=== PATIENT | female | born 1985 | race Caucasian/White ===

== ENCOUNTER 2022-12-15 21:36 | Inpatient (IN) | payer OTHER, SELFPAY ==
[2022-12-15 21:49] VITALS: BP 110/89; PULSE 83; RESP 18; TEMP 36.6; O2SAT 95; BMI 22.3
[2022-12-15 22:26] LABS: UPreg QC Valid YES; Urine Pregnancy NEGATIVE (NEGATIVE)
[2022-12-15 22:27] LABS: Appearance Urine Cloudy; Color Urine Yellow; Glucose Urine UA Negative (Negative); Leukocyte Esterase Urine Negative (Negative); Nitrite Urine Negative (Negative); Specific Gravity - Urine <= 1.005 (1.005-1.025); Urine Blood Negative (Negative); Urine Ketones Negative (Negative); Urine Protein Negative (Neg-Trace)
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
[2022-12-15 22:31] LABS: Amphetamine Screen Urine Not Detected (Not Detect); Barbiturates, Urine Not Detected (Not Detect); Benzodiazepines Screen Urine Not Detected (Not Detect); Cannabinoid Screen Urine Not Detected (Not Detect); Cocaine Screen Urine Not Detected (Not Detect); Fentanyl, urine Not Detected (Not Detect); Opiate Screen Urine Not Detected (Not Detect); Phencyclidine Screen Urine Not Detected (Not Detect)
[2022-12-15] MEDS: OLANZapine 10 MG TABLET PO (22:39)
[2022-12-15] MEDS: diphenhydrAMINE HCL 25 MG CAPSULE 50 MG PO (22:39)
[2022-12-15] MEDS: levETIRAcetam 500 MG TABLET PO (22:39)
[2022-12-15] MEDS: LORazepam 1 MG TABLET 2 MG PO (22:39)
[2022-12-15 22:51] LABS: MANUAL DIFF FLAG NO
[2022-12-15 22:52] LABS: Basophils Absolute Auto 0.1 X10*3/uL (0.0-0.2); Basophils Percent Auto 0.8 % (0-2); Eosinophils Absolute Auto 0.1 X10*3/uL (0.0-0.4); Eosinophils Percent Auto 0.8 % (0-4); Hematocrit 32.5 % (37.0-47.0); Hemoglobin 10.5 g/dl (12.0-16.0); Imm Gran Abs Auto 0.02 X10*3/uL (0.00-0.03); Imm Gran Pct Auto 0.3 % (0.0-0.4); Lymphocytes Absolute Auto 3.8 X10*3/uL (1.2-4.9); Mean Corpuscular HGB Conc 32.3 g/dl (31.0-35.0); Mean Corpuscular Hemoglobin 25.8 pg (27.0-33.0); Mean Corpuscular Volume 79.9 fL (80.0-98.0); Mean Platelet Volume 7.9 fL (9.4-12.3); Monocytes Absolute Auto 0.4 X10*3/uL (0.1-1.2); Monocytes Percent Auto 5.3 % (2-11); Neutrophils Absolute Auto 3.4 x10*3/uL (2.0-8.3); Neutrophils Percent Auto 43.8 % (45-73); Platelet Count 229 X10*3/uL (160-400); Red Blood Count 4.07 X10*6/uL (4.20-5.50); Red Cell Distribution Width 18.3 % (11.0-16.0); White Blood Count 7.7 X10*3/uL (4.8-10.8)
[2022-12-15 23:03] LABS: Ethanol 378 mg/dL
[2022-12-15 23:06] LABS: Alanine Aminotransferase 22 U/L (0-31); Albumin Level 3.9 g/dL (3.5-5.0); Alkaline Phosphatase 99 U/L (39-117); Anion Gap 16 (12-20); Aspartate Amino Transferase 42 U/L (5-31); Bilirubin Total 0.7 mg/dL (0.0-1.0); Blood Urea Nitrogen 7 mg/dL (9-16); COVID-19 Test Negative (Negative); Calcium 8.6 mg/dL (8.4-10.2); Carbon Dioxide 24 mmol/L (22-29); Chloride 108 mmol/L (96-108); Estimated Glomerular Filt Rate > 60; Glucose Random 94 mg/dL (60-115); IDNOW Serial# 55D5AD1C; Potassium 3.5 mmol/L (3.3-5.1); Sodium 144 mmol/L (135-145); Total Protein 7.8 g/dL (6.5-8.0)
[2022-12-16 06:05] VITALS: BP 107/70; PULSE 78; RESP 16; TEMP 36.7; O2SAT 97
--- NOTE | 2022-12-16 06:43 | PC.NURSE ---
Patient at the time of arrival was tearful and sad, tried to wrap blanket around her neck, provider notified/ordered ativan 2 mg PO, Benadryl 50 mg PO, olanzapine 10 mg PO and keppra 500 mg administered at 2239 with + effect, slept through the night, patient will be clinically sober at 1045 am, care consult ordered/pending evaluation, VSS, labs completed/resulted, med rec completed/pending provider's approval, will continue to monitor.
--- NOTE | 2022-12-16 07:11 | PC.NURSE ---
patient appears to remain asleep at present respirations are even and unlabored patient appears in no distress
[2022-12-16 09:27] VITALS: BP 114/79; PULSE 85; RESP 15; TEMP 36.9; O2SAT 97
[2022-12-16] MEDS: LORazepam 1 MG TABLET 2 MG PO ×3 (09:30→22:09)
[2022-12-16] MEDS: levETIRAcetam 500 MG TABLET PO (09:56)
[2022-12-16 15:54] VITALS: BP 116/82; PULSE 98; RESP 20; TEMP 37.1; O2SAT 97
[2022-12-17] MEDS: levETIRAcetam 500 MG TABLET PO ×3 (00:12→20:23)
[2022-12-17 05:17] VITALS: BP 114/84; PULSE 77; RESP 16; TEMP 36.1; O2SAT 99
--- NOTE | 2022-12-17 07:18 | PC.NURSE ---
PT CIWA 6- medicated as per APR. PT reports positive effect- ciwa now 0. PT appears to be sleeping. Respiration even and unlabored. Safety precautions in place. Plan for pt to go to [facility] in the morning.
[2022-12-17 08:58] VITALS: BP 128/90; PULSE 86; RESP 18; TEMP 36.4; O2SAT 99
[2022-12-17] MEDS: LORazepam 1 MG TABLET 2 MG PO ×2 (09:04→14:10)
[2022-12-17 14:09] VITALS: BP 129/92; PULSE 115; RESP 19; TEMP 36.7; O2SAT 99
--- NOTE | 2022-12-17 14:13 | PC.NURSE ---
Lorazepam 2mg PO given for CIWA of 11.
[2022-12-17 18:00] VITALS: BP 121/87; PULSE 104; RESP 18; TEMP 37.1; O2SAT 98
[2022-12-17 18:01] VITALS: BMI 21.1
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
[2022-12-17 19:49] VITALS: BP 133/90; PULSE 110; RESP 18; TEMP 36.4; O2SAT 100
[2022-12-17] MEDS: traZODone HCL 50 MG TABLET PO ×2 (20:23→21:51)
[2022-12-17] MEDS: hydrOXYzine HCL 25 MG TABLET PO (21:51)
[2022-12-18 06:00] VITALS: BP 107/75; PULSE 104; TEMP 36.8; O2SAT 98
[2022-12-18] MEDS: levETIRAcetam 500 MG TABLET PO ×2 (08:59→20:16)
[2022-12-18] MEDS: hydrOXYzine HCL 25 MG TABLET PO ×2 (11:10→17:12)
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
[2022-12-18 16:52] VITALS: BP 125/76; PULSE 88
[2022-12-18] MEDS: QUEtiapine Fumarate 100 MG TABLET PO (20:16)
[2022-12-18] MEDS: traZODone HCL 50 MG TABLET PO (20:16)
[2022-12-18 20:23] VITALS: BP 115/62; PULSE 92; RESP 17; TEMP 36.6; O2SAT 100
[2022-12-19 06:00] VITALS: BP 103/62; PULSE 109; TEMP 36.5; O2SAT 97
[2022-12-19] MEDS: levETIRAcetam 500 MG TABLET PO ×2 (08:32→20:42)
[2022-12-19] MEDS: Thiamine HCL 100 MG TABLET PO (08:32)
[2022-12-19] MEDS: Folic Acid 1 MG TABLET PO (08:33)
[2022-12-19] MEDS: FLUoxetine HCl 10 MG CAPSULE PO (08:33)
[2022-12-19] MEDS: Multivitamin TABLET 1 TAB PO (08:33)
--- NOTE | 2022-12-19 11:29 | HO.PSYCHPN ---
Subjective Subjective Date of Service: 12/19/22 Reason For Visit: depression Subjective Notes: 3 Day Interim History: Reviewed in team and . Patient reports feeling good and positive today. Pt stated, my mom spoke to my partner online and he is optimistic of our relationship working out. I'm also going to restart my journey of sobriety. I was sober for 10 months before relapsing . Observed being social with peers and attending groups. denies SI/HI/VH/AH. Medication Compliance: Yes Side effects from medications: No Attending Groups: Yes Review of Systems Constitutional: Reports as per HPI Eyes: Reports as per HPI Reports as per HPI Cardiovascular: Reports as per HPI Respiratory: Reports as per HPI Gastrointestinal: Reports as per HPI Genitourinary: Reports as per HPI Musculoskeletal: Reports as per HPI Skin/Breast: Reports as per HPI Reports as per HPI Psychiatric: Reports as per HPI Endocrine: Reports as per HPI Hematologic/Lymphatic: Reports as per HPI Allergic/Immunologic: Reports as per HPI Mental Status Exam Mental Status Exam Narrative: Pt is alert and oriented; behavior is cooperative and calm; dressed in casual attire; mood is described as good ; eye contact appropriate; Speech is normal rate, volume and prosody and not pressured; no psychomotor agitation/retardation present; thought process is organized and goal directed; Thought content is on tx; otherwise pertinent to relevant topics and without any delusional content, paranoid ideations or grandiosity; denies SI/HI. There is no evidence of perceptual disturbance. Diagnostics Vital Signs (24Hr): Vital Signs - 24 hr 12/18/22 16:52 12/18/22 20:23 12/19/22 06:00 Temperature 98 F 97.7 F Pulse Rate 88 92 109 H Respiratory Rate 17 Blood Pressure 125/76 115/62 103/62 Pulse Oximetry 100 97 Oxygen Delivery Method Room Air Room Air BMI result Body Mass Index 21.1 Labs 12/15/22 22:44 12/15/22 22:44 Medications Medications Current Medications Acetaminophen (Acetaminophen 325 Mg Tablet) 650 mg PO Q6H PRN PRN Reason: Headache/Pain Mild Scale (1-3) Al Hydroxide/Mg Hydroxide (Magnesium Hydrox/Alum Hydrox 30 Ml Oral.Susp) 30 ml PO Q6H PRN PRN Reason: Heartburn/Nausea Fluoxetine HCl (Fluoxetine Hcl 10 Mg Capsule) 10 mg PO DAILY AMBER Last Admin: 12/19/22 08:33 Dose: 10 mg Folic Acid (Folic Acid 1 Mg Tablet) 1 mg PO DAILY [facility] Last Admin: 12/19/22 08:33 Dose: 1 mg Hydroxyzine HCl (Hydroxyzine Hcl 25 Mg Tablet) 25 mg PO Q6H PRN PRN Reason: Anxiety Last Admin: 12/18/22 17:12 Dose: 25 mg Levetiracetam (Levetiracetam 500 Mg Tablet) 500 mg PO BID [facility] Last Admin: 12/19/22 08:32 Dose: 500 mg Lorazepam (Lorazepam 1 Mg Tablet) 1 mg PO Q2H PRN PRN Reason: CIWA 8-11 Lorazepam (Lorazepam 1 Mg Tablet) 2 mg PO Q2H PRN PRN Reason: CIWA 12-15 Lorazepam (Lorazepam 1 Mg Tablet) 3 mg PO Q2H PRN PRN Reason: CIWA > 15; and call Magnesium Hydroxide (Milk Of Magnesia 30 Ml Oral.Susp) 30 ml PO DAILY PRN PRN Reason: Constipation Multivitamins/Vitamin C (Multivitamin Tablet) 1 tab PO DAILY [facility] Last Admin: 12/19/22 08:33 Dose: 1 tab Nicotine Polacrilex (Nicotine Polacrilex 2 Mg Gum) 4 mg BUCCAL Q2H PRN PRN Reason: Nicotine Cravings Quetiapine Fumarate (Quetiapine Fumarate 100 Mg Tablet) 100 mg PO BEDTIME [facility] Last Admin: 12/18/22 20:16 Dose: 100 mg Thiamine HCl (Thiamine Hcl 100 Mg Tablet) 100 mg PO DAILY [facility] Last Admin: 12/19/22 08:32 Dose: 100 mg Trazodone HCl (Trazodone Hcl 50 Mg Tablet) 50 mg PO BEDTIME MRX1 PRN PRN Reason: Insomnia Last Admin: 12/18/22 20:16 Dose: 50 mg Allergies Allergies Allergy/AdvReac Type Severity Reaction Status Date / Time amoxicillin Allergy Severe Rash Verified 12/15/22 22:19 Penicillins Allergy Anaphylaxis Verified 12/15/22 21:56 Assessment & Plan Assessment & Plan (1) Bipolar disorder: Status: Acute Code(s): F31.9 - Bipolar disorder, unspecified (2) Alcohol abuse: Status: Acute Code(s): F10.10 - Alcohol abuse, uncomplicated Plan Patient is a 37 year old female with hx of Bipolar d/o and ETOH abuse who self presented [place] [facility] [place] d/t suicidal ideation secondary to increased depressive symptoms and alcohol use. Plan: CV Pt signed 3 day Obtain collateral from ex-partner Possible referral for substance abuse program? Referral to PHP? Start: Seroquel 100mg PO bedtime Prozac 10mg PO daily 12/19: Patient reports feeling good and positive today. Pt stated, my mom spoke to my partner online and he is optimistic of our relationship working out. I'm also going to restart my journey of sobriety. I was sober for 10 months before relapsing . Observed being social with peers and attending groups. denies SI/HI/VH/AH. Continue current tx plan. Patient educated on: diagnosis, medication risk/benefits, substance abuse and therapeutic strategies Informed Consent: understands Reason for continued inpatient stay Substantial Risk for: med/psych decompensation Time Spent With Patient Time: Total time managing care of this patient today _30___ minutes.
[2022-12-19 12:06] LABS: MANUAL DIFF FLAG NO
[2022-12-19 12:22] LABS: Alanine Aminotransferase 38 U/L (0-31); Albumin Level 4.1 g/dL (3.5-5.0); Alkaline Phosphatase 109 U/L (39-117); Anion Gap 10 (12-20); Aspartate Amino Transferase 62 U/L (5-31); Bilirubin Total 0.7 mg/dL (0.0-1.0); Blood Urea Nitrogen 14 mg/dL (9-16); Calcium 9.7 mg/dL (8.4-10.2); Carbon Dioxide 25 mmol/L (22-29); Chloride 106 mmol/L (96-108); Creatinine Clr Calc Pharmacy 118.1; Estimated Glomerular Filt Rate > 60; Glucose Random 99 mg/dL (60-115); Potassium 3.9 mmol/L (3.3-5.1); Sodium 137 mmol/L (135-145); Total Protein 7.8 g/dL (6.5-8.0)
[2022-12-19 12:27] LABS: Basophils Percent Auto 0.5 % (0-2); Eosinophils Absolute Auto 0.3 X10*3/uL (0.0-0.4); Hemoglobin 9.3 g/dl (12.0-16.0); Imm Gran Abs Auto 0.03 X10*3/uL (0.00-0.03); Imm Gran Pct Auto 0.7 % (0.0-0.4); Lymphocytes Absolute Auto 1.2 X10*3/uL (1.2-4.9); Lymphocytes Percent Auto 28.5 % (20-40); Mean Corpuscular HGB Conc 32.1 g/dl (31.0-35.0); Mean Corpuscular Hemoglobin 26.5 pg (27.0-33.0); Mean Corpuscular Volume 82.6 fL (80.0-98.0); Mean Platelet Volume 9.5 fL (9.4-12.3); Monocytes Absolute Auto 0.3 X10*3/uL (0.1-1.2); Monocytes Percent Auto 7.6 % (2-11); Neutrophils Absolute Auto 2.5 x10*3/uL (2.0-8.3); Neutrophils Percent Auto 56.7 % (45-73); Red Blood Count 3.51 X10*6/uL (4.20-5.50); Red Cell Distribution Width 17.8 % (11.0-16.0); White Blood Count 4.3 X10*3/uL (4.8-10.8)
[2022-12-19 12:28] LABS: Platelet Count 129 X10*3/uL (160-400)
[2022-12-19] MEDS: Acetaminophen 325 MG TABLET 650 MG PO (14:40)
[2022-12-19] MEDS: LORazepam 1 MG TABLET PO (18:19)
[2022-12-19 20:00] VITALS: BP 127/81; PULSE 97; RESP 16; TEMP 36.5; O2SAT 100
[2022-12-19] MEDS: traZODone HCL 50 MG TABLET PO (20:42)
[2022-12-19] MEDS: QUEtiapine Fumarate 100 MG TABLET PO (20:42)
[2022-12-20] MEDS: levETIRAcetam 500 MG TABLET PO ×2 (09:15→20:12)
[2022-12-20] MEDS: Folic Acid 1 MG TABLET PO (09:15)
[2022-12-20] MEDS: FLUoxetine HCl 10 MG CAPSULE PO (09:15)
[2022-12-20] MEDS: Multivitamin TABLET 1 TAB PO (09:15)
[2022-12-20] MEDS: Thiamine HCL 100 MG TABLET PO (09:15)
--- NOTE | 2022-12-20 09:20 | HO.PSYCHPN ---
Subjective Subjective Date of Service: 12/20/22 Reason For Visit: depression Subjective Notes: 3 Day Interim History: Reviewed in team and . Patient continues to report feeling good ; pt stated, I'm looking forward to going back to [facility] and seeing my family then moving to [place] because it's beautiful there . Patient reports she plans on following up with outpatient providers. Iron profile, B12 and folate, Hepatitis panel labs ordered. Iron 325mg PO daily ordered. Medication Compliance: Yes Side effects from medications: No Attending Groups: Yes Review of Systems Constitutional: Reports as per HPI Eyes: Reports as per HPI Reports as per HPI Cardiovascular: Reports as per HPI Respiratory: Reports as per HPI Gastrointestinal: Reports as per HPI Genitourinary: Reports as per HPI Musculoskeletal: Reports as per HPI Skin/Breast: Reports as per HPI Reports as per HPI Psychiatric: Reports as per HPI Endocrine: Reports as per HPI Hematologic/Lymphatic: Reports as per HPI Allergic/Immunologic: Reports as per HPI Mental Status Exam Mental Status Exam Narrative: Pt is alert and oriented; behavior is cooperative and calm; dressed in casual attire; mood is described as good ; eye contact appropriate; Speech is normal rate, volume and prosody and not pressured; no psychomotor agitation/retardation present; thought process is organized and goal directed; Thought content is on tx; otherwise pertinent to relevant topics and without any delusional content, paranoid ideations or grandiosity; denies SI/HI. There is no evidence of perceptual disturbance. Diagnostics Vital Signs (24Hr): Vital Signs - 24 hr 12/19/22 20:00 Temperature 97.7 F Pulse Rate 97 Respiratory Rate 16 Blood Pressure 127/81 Pulse Oximetry 100 Oxygen Delivery Method Room Air BMI result Body Mass Index 21.1 Labs 12/19/22 11:58 12/19/22 11:58 Labs: Laboratory Results - last 48 hr 12/19/22 11:58 WBC 4.3 L RBC 3.51 L Hgb 9.3 L Hct 29.0 L MCV 82.6 MCH 26.5 L MCHC 32.1 RDW 17.8 H Plt Count 129 L D MPV 9.5 Immature Gran % (Auto) 0.7 H Neut % (Auto) 56.7 Lymph % (Auto) 28.5 [place] % (Auto) 7.6 Eos % (Auto) 6.0 H Baso % (Auto) 0.5 Lymph # (Auto) 1.2 [place] # (Auto) 0.3 Eos # (Auto) 0.3 Baso # (Auto) 0.0 Abs Immat Gran (auto) 0.03 Absolute Neuts (auto) 2.5 Absolute Nucleated RBC 0.000 Nucleated RBC % (auto) 0.0 Sodium 137 Potassium 3.9 Chloride 106 Carbon Dioxide 25 Anion Gap 10 L BUN 14 Creatinine 0.72 Estim Creat Clear Calc 118.1 Estimated GFR > 60 Random Glucose 99 Calcium 9.7 D Total Bilirubin 0.7 AST 62 H ALT 38 H Alkaline Phosphatase 109 Total Protein 7.8 Albumin 4.1 Medications Medications Current Medications Acetaminophen (Acetaminophen 325 Mg Tablet) 650 mg PO Q6H PRN PRN Reason: Headache/Pain Mild Scale (1-3) Last Admin: 12/19/22 14:40 Dose: 650 mg Al Hydroxide/Mg Hydroxide (Magnesium Hydrox/Alum Hydrox 30 Ml Oral.Susp) 30 ml PO Q6H PRN PRN Reason: Heartburn/Nausea Fluoxetine HCl (Fluoxetine Hcl 10 Mg Capsule) 10 mg PO DAILY [facility] Last Admin: 12/20/22 09:15 Dose: 10 mg Folic Acid (Folic Acid 1 Mg Tablet) 1 mg PO DAILY [facility] Last Admin: 12/20/22 09:15 Dose: 1 mg Hydroxyzine HCl (Hydroxyzine Hcl 25 Mg Tablet) 25 mg PO Q6H PRN PRN Reason: Anxiety Last Admin: 12/18/22 17:12 Dose: 25 mg Levetiracetam (Levetiracetam 500 Mg Tablet) 500 mg PO BID [facility] Last Admin: 12/20/22 09:15 Dose: 500 mg Lorazepam (Lorazepam 1 Mg Tablet) 1 mg PO Q2H PRN PRN Reason: CIWA 8-11 Last Admin: 12/19/22 18:19 Dose: 1 mg Lorazepam (Lorazepam 1 Mg Tablet) 2 mg PO Q2H PRN PRN Reason: CIWA 12-15 Lorazepam (Lorazepam 1 Mg Tablet) 3 mg PO Q2H PRN PRN Reason: CIWA > 15; and call Magnesium Hydroxide (Milk Of Magnesia 30 Ml Oral.Susp) 30 ml PO DAILY PRN PRN Reason: Constipation Multivitamins/Vitamin C (Multivitamin Tablet) 1 tab PO DAILY [facility] Last Admin: 12/20/22 09:15 Dose: 1 tab Nicotine Polacrilex (Nicotine Polacrilex 2 Mg Gum) 4 mg BUCCAL Q2H PRN PRN Reason: Nicotine Cravings Quetiapine Fumarate (Quetiapine Fumarate 100 Mg Tablet) 100 mg PO BEDTIME AMBER Last Admin: 12/19/22 20:42 Dose: 100 mg Thiamine HCl (Thiamine Hcl 100 Mg Tablet) 100 mg PO DAILY [facility]BER Last Admin: 12/20/22 09:15 Dose: 100 mg Trazodone HCl (Trazodone Hcl 50 Mg Tablet) 50 mg PO BEDTIME MRX1 PRN PRN Reason: Insomnia Last Admin: 12/19/22 20:42 Dose: 50 mg Allergies Allergies Allergy/AdvReac Type Severity Reaction Status Date / Time amoxicillin Allergy Severe Rash Verified 12/15/22 22:19 Penicillins Allergy Anaphylaxis Verified 12/15/22 21:56 Assessment & Plan Assessment & Plan (1) Bipolar disorder: Status: Acute Code(s): F31.9 - Bipolar disorder, unspecified (2) Alcohol abuse: Status: Acute Code(s): F10.10 - Alcohol abuse, uncomplicated Plan Patient is a 37 year old female with hx of Bipolar d/o and ETOH abuse who self presented to [facility] d/t suicidal ideation secondary to increased depressive symptoms and alcohol use. Plan: CV Pt signed 3 day Obtain collateral from ex-partner Possible referral for substance abuse program? Referral to [facility]? Start: Seroquel 100mg PO bedtime Prozac 10mg PO daily 12/19: Patient reports feeling good and positive today. Pt stated, my mom spoke to my partner online and he is optimistic of our relationship working out. I'm also going to restart my journey of sobriety. I was sober for 10 months before relapsing . Observed being social with peers and attending groups. denies SI/HI/VH/AH. Continue current tx plan. 12/20: Patient continues to report feeling good ; pt stated, I'm looking forward to going back to [facility] and seeing my family then moving to [place] because it's beautiful there . Patient reports she plans on following up with outpatient providers. Iron profile, B12 and folate, Hepatitis panel labs ordered. Iron 325mg PO daily ordered. Patient to be discharged tomorrow on 3 day. Patient educated on: diagnosis, medication risk/benefits and therapeutic strategies Informed Consent: understands Reason for continued inpatient stay Substantial Risk for: stable for discharge Time Spent With Patient Time: Total time managing care of this patient today _30___ minutes.
[2022-12-20 09:34] VITALS: BP 120/74; PULSE 78; RESP 18; TEMP 36.8; O2SAT 100
[2022-12-20 12:31] VITALS: BMI 22.0
[2022-12-20 13:33] LABS: Iron 18 mcg/dL (30-160); Percent Iron Saturation 4 % (15-50); Total Iron Binding Capacity 418 mcg/dL (228-428); Unsaturated Iron Binding 400 ug/dL
[2022-12-20 14:09] LABS: Folate > 20.0 ng/mL (> or = 4.0); Vitamin B12 765 pg/mL (200-900)
[2022-12-20] MEDS: hydrOXYzine HCL 25 MG TABLET PO (15:11)
[2022-12-20] MEDS: QUEtiapine Fumarate 100 MG TABLET PO (20:12)
[2022-12-20 20:18] VITALS: BP 134/71; PULSE 113; TEMP 36.6; O2SAT 98
[2022-12-20] MEDS: traZODone HCL 50 MG TABLET PO (20:50)
[2022-12-21] MEDS: levETIRAcetam 500 MG TABLET PO (08:10)
[2022-12-21] MEDS: Multivitamin TABLET 1 TAB PO (08:10)
[2022-12-21] MEDS: FLUoxetine HCl 10 MG CAPSULE PO (08:10)
[2022-12-21] MEDS: Ferrous Sulfate 324 MG TABLET.DR PO (08:10)
[2022-12-21] MEDS: Folic Acid 1 MG TABLET PO (08:10)
[2022-12-21] MEDS: Thiamine HCL 100 MG TABLET PO (08:11)
[2022-12-21 08:29] LABS: HBS Num1 > 1000.00 mIU/mL (0-7.99); HBc Num1 0.17 S/CO (0.00-0.79); HBsAGNum1 0.32 S/CO (0.00-0.99); Hepatitis A Antibody IgM 0.24 Index (0-0.79); Hepatitis B Core Antibody Nonreactive (Nonreactive); Hepatitis B Surface Antigen Negative (Negative); ~HepC Num1 0.16 S/CO (0.00-0.79); ~Hepatitis A Antibody IgM Nonreactive (Nonreactive); ~Hepatitis B Surface Antibody REACTIVE (Nonreactive); ~Hepatitis C Antibody Nonreactive (Nonreactive)
--- NOTE | 2022-12-21 09:18 | PM.PSYDC ---
DS: Providers Provider Date of Service: 12/21/22 Date of admission: 12/17/22 16:10 Date of discharge: 12/21/22 Primary care physician: Unknown Physician Admitting clinician: Amanda Youssef Attending physician on admission: Kvng Gagnon Attending physician on discharge: Kvng Gagnon Discharging clinician: Amanda Youssef DS: Diagnosis Discharge Diagnosis (1) Bipolar disorder: Status: Acute (2) Alcohol abuse: Status: Acute DS: Medications Discharge Medications Home Medications: Home Medications Medication Instructions Recorded Confirmed levetiracetam 500 mg tablet 500 mg PO BID 12/15/22 12/15/22 Previous Rx's Medication Instructions Recorded ferrous sulfate 324 mg (65 mg 324 mg PO DAILY 14 days #14 tabs 12/20/22 iron) tablet,delayed release fluoxetine 10 mg capsule 10 mg PO DAILY 30 days #30 caps 12/20/22 quetiapine 100 mg tablet 100 mg PO BEDTIME 30 days #30 tabs 12/20/22 Mental Status Exam Mental Status Exam Narrative: Pt is alert and oriented; behavior is cooperative, friendly and calm; dressed in casual attire; mood is described as good ; eye contact appropriate; Speech is normal rate, volume and prosody and not pressured; no psychomotor agitation/retardation present; thought process is organized and goal directed; Thought content is on tx; otherwise pertinent to relevant topics and without any delusional content, paranoid ideations or grandiosity; denies SI/HI. There is no evidence of perceptual disturbance. Patients insight and judgment are fair. Data Data Completed and Pending Completed studies during hospitalization [Text1]: 12/15/22 12/15/22 12/19/22 22:12 22:44 11:58 WBC 7.7 4.3 L RBC 4.07 L 3.51 L Hgb 10.5 L 9.3 L Hct 32.5 L 29.0 L MCV 79.9 L 82.6 MCH 25.8 L 26.5 L MCHC 32.3 32.1 RDW 18.3 H 17.8 H Plt Count 229 129 L D MPV 7.9 L 9.5 Immature Gran % (Auto) 0.3 0.7 H Neut % (Auto) 43.8 L 56.7 Lymph % (Auto) 49.0 H 28.5 [place] % (Auto) 5.3 7.6 Eos % (Auto) 0.8 6.0 H Baso % (Auto) 0.8 0.5 Lymph # (Auto) 3.8 1.2 [place] # (Auto) 0.4 0.3 Eos # (Auto) 0.1 0.3 Baso # (Auto) 0.1 0.0 Abs Immat Gran (auto) 0.02 0.03 Absolute Neuts (auto) 3.4 2.5 Absolute Nucleated RBC 0.000 0.000 Nucleated RBC % (auto) 0.0 0.0 Sodium 144 137 Potassium 3.5 3.9 Chloride 108 106 Carbon Dioxide 24 25 Anion Gap 16 10 L BUN 7 L 14 Creatinine 0.67 0.72 Estim Creat Clear Calc 131.0 118.1 Estimated GFR > 60 > 60 Random Glucose 94 99 Calcium 8.6 9.7 D Iron TIBC % Saturation Unsat Iron Binding Total Bilirubin 0.7 0.7 AST 42 H 62 H ALT 22 38 H Alkaline Phosphatase 99 109 Total Protein 7.8 7.8 Albumin 3.9 4.1 Vitamin B12 Folate Urine Color Yellow Urine Appearance Cloudy Urine pH 7.0 Ur Specific [place] <= 1.005 Urine Protein Negative Urine Glucose (UA) Negative Urine Ketones Negative Urine Blood Negative Urine Nitrite Negative Ur Leukocyte Esterase Negative Urine Test NEGATIVE Urine Opiates Screen Not Detected Urine Fentanyl Screen Not Detected Ur Barbiturates Screen Not Detected Ur Phencyclidine Scrn Not Detected Ur Amphetamines Screen Not Detected U Benzodiazepines Scrn Not Detected Urine Cocaine Screen Not Detected U Marijuana (THC) Screen Not Detected Ethyl Alcohol 378 H* COVID-19 (LOIDA) Negative COVID-19 Clin Com See Note Hepatitis A IgM Ab Hep Bs Antigen Hep Bs Antibody Hep B Core Total Ab Hepatitis C Ab (EIA) 12/20/22 12/20/22 13:05 13:07 WBC RBC Hgb Hct MCV MCH MCHC RDW Plt Count MPV Immature Gran % (Auto) Neut % (Auto) Lymph % (Auto) [place] % (Auto) Eos % (Auto) Baso % (Auto) Lymph # (Auto) [place] # (Auto) Eos # (Auto) Baso # (Auto) Abs Immat Gran (auto) Absolute Neuts (auto) Absolute Nucleated RBC Nucleated RBC % (auto) Sodium Potassium Chloride Carbon Dioxide Anion Gap BUN Creatinine Estim Creat Clear Calc Estimated GFR Random Glucose Calcium Iron 18 L TIBC 418 % Saturation 4 L Unsat Iron Binding 400 Total Bilirubin AST ALT Alkaline Phosphatase Total Protein Albumin Vitamin B12 765 Folate > 20.0 Urine Color Urine Appearance Urine pH Ur Specific [place] Urine Protein Urine Glucose (UA) Urine Ketones Urine Blood Urine Nitrite Ur Leukocyte Esterase Urine Test Urine Opiates Screen Urine Fentanyl Screen Ur Barbiturates Screen Ur Phencyclidine Scrn Ur Amphetamines Screen U Benzodiazepines Scrn Urine Cocaine Screen U Marijuana (THC) Screen Ethyl Alcohol COVID-19 (LOIDA) COVID-19 Clin Com Hepatitis A IgM Ab Nonreactive Hep Bs Antigen Negative Hep Bs Antibody REACTIVE Hep B Core Total Ab Nonreactive Hepatitis C Ab (EIA) Nonreactive DS: Summary Hospital Course Hospital Course: Patient is a 37 year old female with hx of Bipolar d/o and ETOH abuse who self presented to [facility] d/t suicidal ideation secondary to increased depressive symptoms and alcohol use. Per crisis report, pt has not been taking her medication since June d/t running out and not seeing my provider since . She reports drinking a sleeve of vodka nips a day; denies any other substance use. Utox negative for substances other than alcohol. Patient lost custody of her children in August to their biological father after he filed for emergency custody, after patient took children from home in [place] and brought them to a friends house in [place] . After a few hours in the behavioral health POD in ER, pt wrapped a sheet around her neck in an attempt to kill herself. During admission assessment, pt presents calm, cooperative and friendly. Patient reports she is feeling different than when I first came in here . Pt stated, I know that if I did something stupid like harming myself then I would never get my kids; which is the ultimate goal . Patient reports she feels the situation of events escalated really fast. I rarely get to talk or see my kids and it just hit me really hard. I know my kids wouldn't be better off without me. My partner and I are trying to get back together and work things out. My aunt plans on driving me back to the house in [place], [place] . Patient reports hx of taking Prozac, Seroquel and Trazodone with positive affect; she is requesting to be restarted on these medications. Patient gave verbal permission to speak with her ex-partner, Matheus, to obtain collateral; T/W attempted to call phone number given, however phone is out of service at this time. During hospital stay, Pt signed 3 day. She was started on Seroquel 100mg PO bedtime and Prozac 10mg PO daily. Patient reports feeling good and positive today. Pt stated, my mom spoke to my partner online and he is optimistic of our relationship working out. I'm also going to restart my journey of sobriety. I was sober for 10 months before relapsing . Observed being social with peers and attending groups. denies SI/HI/VH/AH. Patient continues to report feeling good ; pt stated, I'm looking forward to going back to [place] and seeing my family then moving to [place] because it's beautiful there . Patient reports she plans on following up with outpatient providers. Iron profile, B12 and folate, Hepatitis panel labs ordered. Iron 325mg PO daily ordered. Patient was discharged on 3 day. Patient reports she plans on following up with her doctor regarding her iron profile. She also plans on following up with outpatient providers for her sobriety and mental health. denies SI/HI/VH/AH. Time spent discussing smoking cessation with patient: 3 to 10 minutes Status at Discharge Cognitive/behavioral status at discharge: Patient was interviewed prior to discharge and found to be fully oriented and without any SI or HI. Patient has insight and demonstrates good judgment in terms of wanting to pursue treatment. Patient is not in imminent risk of harm to self or others and has a safety plan that includes presenting to the closest ER or calling 911 if feeling unsafe. Patient has been observed closely by nursing and unit staff throughout admission; patient has not engaged in any behaviors that suggest dangerousness to self or others and has demonstrated appropriate behaviors and impulse control. Functional status at discharge: independent ambulation Overall status at discharge: patient is back to baseline Time Spent with Patient Time attestation: Total time managing care of this patient today _30___ minutes. Time spent: Less than 30 minutes Discharge Plan Discharge Anticipated Discharge Date/Time: 12/21/22 09:30 Patient Disposition: Home, Self-Care Discharge Diagnosis: Bipolar d/o, ETOH abuse Referrals: [facility] [Other] - 12/26/22 5:15 pm Discharge Medications: New ferrous sulfate 324 mg (65 mg iron) Tablet,Delayed Release (Dr/Ec) 324 mg PO DAILY 14 Days Qty: 14 0RF fluoxetine 10 mg Capsule 10 mg PO DAILY 30 Days Qty: 30 0RF quetiapine 100 mg Tablet 100 mg PO BEDTIME 30 Days Qty: 30 0RF Continued levetiracetam 500 mg Tablet 500 mg PO BID Discharge Orders: Discharge Order (Routine); Ordered 12/21/22 Ordered By: Amanda Youssef Diet: Regular diet Activity on Discharge: As tolerated Stand Alone Forms: Patient Portal Discharge page, Community Support Care Plan Goals: Maintain mood and safe behaviors Take medications as prescribed Continue to pursue sobriety Practice coping skills Continue with outpatient providers and reach out to them as needed Health Concerns: Mood stability and behaviors Sobriety Plan of Treatment: Follow up with your PCP, psychiatric provider and other outpatient providers regarding above concerns Take medications as prescribed Assessment: Patient was interviewed prior to discharge and found to be fully oriented and without any SI or HI. Patient has insight and demonstrates good judgment in terms of wanting to pursue treatment. Patient is not in imminent risk of harm to self or others and has a safety plan that includes presenting to the closest ER or calling 911 if feeling unsafe. Patient has been observed closely by nursing and unit staff throughout admission; patient has not engaged in any behaviors that suggest dangerousness to self or others and has demonstrated appropriate behaviors and impulse control. Discharge Date/Time: 12/21/22 09:30
== END 2022-12-21 09:30 | disposition home or self-care (01) | DRG 753 ==
LOC: HO.ED 12-16 07:05 → HO.PADLT16 12-17 16:21
PROVIDERS: Admitting Provider Psychiatry & Neurology Psychiatry; Emergency Provider Internal Medicine; Responsible Provider Registered Nurse; Visit Provider Psychiatry & Neurology Psychiatry
DX: F31.9 Bipolar disorder, unspecified (principal); R45.851 Suicidal ideations; Z91.148 Patient's other noncompliance with medication regimen for other reason; F10.10 Alcohol abuse, uncomplicated; Z20.822 Contact with and (suspected) exposure to COVID-19; Z23 Encounter for immunization; Y90.8 Blood alcohol level of 240 mg/100 ml or more; Z87.891 Personal history of nicotine dependence; Z79.899 Other long term (current) drug therapy
CPT/HCPCS: 36415; 80053; 80307; 81003; 81025; 82607; 82746; 83540; 85025; 86704; 86706; 86709; 86803; 87340; 87635; 90686; 99285; S9485

== ENCOUNTER → 2022-12-17 16:10 | Outpatient (BNV) | payer OTHER, SELFPAY | PROVIDERS: Admitting Provider Psychiatry & Neurology Psychiatry; Emergency Provider Internal Medicine; Responsible Provider Registered Nurse; Visit Provider Registered Nurse | DX: F31.4 Bipolar disorder, current episode depressed, severe, without psychotic features (principal); F10.10 Alcohol abuse, uncomplicated | CPT/HCPCS: 99231; 99232; 99233 ==